=== PATIENT | male | born 1995 | race Asian ===

== ENCOUNTER 2017-04-30 00:18 | Emergency (ER) | payer OTHER ==
[2017-04-30 01:37] VITALS: BP 122/82; PULSE 69; TEMP 98.2; BMI 21.9
--- NOTE | 2017-04-30 03:38 | PDOC ---
Attending Attestation - Resident Resident Name: RubiLonnie - HPI HPI: 04/30/17 04:54 Pt comes with a sticking sensation in the left chest that began while he was smoking. Pt has never had a collapsed lung and he has no fever or chills, and he has no PMHX and no fam hx of CAD. He appears well, and pain is pleuritic. - Physicial Exam PE: 04/30/17 04:55 Agree with resident exam - Medical Decision Making 04/30/17 04:55 CXR normal. Labs normal. EKG sinus ingrid. Follow with PMD and with cardiology as needed.
--- NOTE | 2017-04-30 04:05 | PDOC ---
History of Present Illness - General Chief Complaint: Chest Pain Stated Complaint: SOB,CHEST PAIN Time Seen by Provider: 04/30/17 01:18 History Source: Patient Exam Limitations: No Limitations - History of Present Illness Initial Comments: 04/30/17 03:59 Patient is a 21M without significant medical history here today complaining of chest pain. The pain is described as a sharp stabbing pain. It's located in the lateral left aspect of his chest without radiation. The pain gets worse with inspiration, is intermittent, and waxes and wanes. The patient reports that this has happened several times before in the past, but was never bad enough for him to get it checked out. He endorses some associated shortness of breath. He denies nausea, vomiting, fevers and chills. Past History - Past Medical History Allergies/Adverse Reactions: Allergies Allergy/AdvReac Type Severity Reaction Status Date / Time No Known Allergies Allergy Verified 04/30/17 01:35 Home Medications: Ambulatory Orders NK [No Known Home Medication] 07/07/16 Anemia: No Asthma: No Cancer: No Cardiac Disorders: No CVA: No COPD: No DVT: No Dementia: No Diabetes: No Dialysis: No GI Disorders: No Disorders: No HTN: No Hypercholesterolemia: No HIV: No Kidney Stones: No Liver Disease: No Psychiatric Problems: No Seizures: No Thyroid Disease: No Lung CA: No - Immunization History Immunization Up to Date: No - Psycho/Social/Smoking Cessation Hx Anxiety: No Suicidal Ideation: No Smoking History: Never smoked Have you smoked in the past 12 months: No Number of Cigarettes Smoked Daily: 2 Information on smoking cessation initiated: No Hx Alcohol Use: No Drug/Substance Use Hx: No Review of Systems - Review of Systems Comments:: 04/30/17 04:02 GENERAL/CONSTITUTIONAL: No fever or chills. No weakness. HEAD, EYES, EARS, NOSE AND THROAT: No change in vision. No sore throat. CARDIOVASCULAR: Positive for chest pain and shortness of breath. RESPIRATORY: No cough, wheezing, or hemoptysis. GASTROINTESTINAL: No nausea, vomiting, diarrhea or constipation. GENITOURINARY: No dysuria, frequency, or change in urination. MUSCULOSKELETAL: No joint or muscle swelling or pain. No neck or back pain. SKIN: No rash NEUROLOGIC: No headache, loss of consciousness, or change in strength/sensation. HEMATOLOGIC/LYMPHATIC: No anemia, easy bleeding, or history of blood clots. ALLERGIC/IMMUNOLOGIC: No hives or skin allergy. *Physical Exam - Vital Signs Last Vital Signs Temp Pulse Resp BP Pulse Ox 98.2 F 69 20 122/82 100 04/30/17 01:35 04/30/17 01:35 04/30/17 01:35 04/30/17 01:35 04/30/17 01:35 - Physical Exam Comments: 04/30/17 04:03 GENERAL: Awake, alert, and fully oriented, in no acute distress HEAD: No signs of trauma, normocephalic, atraumatic EYES: PERRLA, EOMI, sclera anicteric, conjunctiva clear ENT: Auricles normal inspection, hearing grossly normal, nares patent, oropharynx clear without exudates. Moist mucosa NECK: Normal ROM, supple, no lymphadenopathy, JVD, or masses LUNGS: No distress, speaks full sentences, clear to auscultation bilaterally HEART: Regular rate and rhythm, normal S1 and S2, no murmurs, rubs or gallops, peripheral pulses normal and equal bilaterally. ABDOMEN: Soft, nontender, normoactive bowel sounds. No guarding, no rebound. No masses EXTREMITIES: Normal inspection, Normal range of motion, no edema. No clubbing or cyanosis. NEUROLOGICAL: Cranial nerves II through XII grossly intact. Normal speech, normal gait, no focal sensorimotor deficits SKIN: Warm, Dry, normal turgor, no rashes or lesions noted. ED Treatment Course - RADIOLOGY Radiology Studies Ordered: Category Date Time Status CHEST X-RAY PORTABLE* [RAD] Stat Radiology 04/30/17 01:33 Ordered Medical Decision Making - Medical Decision Making 04/30/17 04:03 Patient is a 21M with no significant medical history here today with atypical chest pain. Vital signs normal and stable. EKG shows sinus bradycardia with sinus arrhythmia. Normal axis, no st elevations, no st depressions or t-wave inversions. Chest x-ray pending. 04/30/17 04:40 CXR shows no acute cardiopulmonary process. 04/30/17 06:31 Additional history from patient says that the pain started after he smoked some cigarettes. Further workup unnecessary. Given education on smoking. Alert and able to ambulate at discharge. *DC/Admit/Observation/Transfer Diagnosis at time of Disposition: Chest pain Qualifiers: Chest pain type: unspecified Qualified Code(s): R07.9 - Chest pain, unspecified - Discharge Dispostion Disposition: HOME Condition at time of disposition: Good Admit: No - Patient Instructions Printed Discharge Instructions: DI for Atypical Chest Pain Additional Instructions: Please set up care with a primary care physician to follow up on this chest pain.
--- NOTE | 2017-04-30 09:21 | EKG ---
Test Reason : Blood Pressure : / mmHG Vent. Rate : 050 BPM Atrial Rate : 050 BPM P-R Int : 202 ms QRS Dur : 084 ms QT Int : 402 ms P-R-T Axes : 075 056 045 degrees QTc Int : 366 ms SINUS BRADYCARDIA WITH SINUS ARRHYTHMIA POSSIBLE LEFT ATRIAL ENLARGEMENT BORDERLINE ECG NO PREVIOUS ECGS AVAILABLE Confirmed by MD SHANE, KRISTOPHER ([id number]) on 04/30/2017 9:21:12 AM Referred By: Confirmed By:KRISTOPHER LYNN MD
== END 2017-04-30 04:51 | disposition home or self-care (01) ==
LOC: JER 00:18
DX: R07.9 Chest pain, unspecified (principal); F17.210 Nicotine dependence, cigarettes, uncomplicated
CPT/HCPCS: 71010-TC; 93005; 93010; 99283-25